=== PATIENT | female | born 1950 | race Caucasian/White ===

== ENCOUNTER → 2019-08-18 13:39 | Outpatient (CLI) | payer OTHER, SELFPAY | PROVIDERS: Visit Provider Family Medicine | DX: E11.621 Type 2 diabetes mellitus with foot ulcer (principal); L97.511 Non-pressure chronic ulcer of other part of right foot limited to breakdown of skin; R60.0 Localized edema; I73.9 Peripheral vascular disease, unspecified | CPT/HCPCS: 97597; 99203; 99213 ==

== ENCOUNTER → 2019-08-21 13:11 | Outpatient (CLI) | payer OTHER, SELFPAY ==
--- NOTE | 2019-08-21 | DI.MRI.S_ITS ---
PROCEDURE: MR FOOT RT WO CON INDICATIONS: Cellulitis of right toe TECHNIQUE: Noncontrast sagittal T1 spin echo and T2 fast spin echo with fat saturation, long-axis T1 spin echo and T2 fast spin echo with fat saturation, short-axis T1 spin echo and T2 fast spin echo with fat saturation through the forefoot. COMPARISON: None. FINDINGS: Image quality: Excellent. Bones and joints: No bone marrow contusions or metatarsal stress fractures. The sesamoid bones appear in expected positions, without internal edema. Diffuse severe midfoot joint degeneration. Associated sclerosis and spurring. Marrow fat signal loss seen in the distal phalanx of the fifth toe is noted although there is relative paucity of overlying soft tissue changes nonetheless this raises the possibility of osteomyelitis. Similar signal changes present in the distal phalanx of the third toe Elsewhere, marrow fat signal grossly preserved Soft tissues: Dorsal subcutaneous soft tissue edema. Diffuse muscle atrophy noted. Visualized flexor and extensor tendons appear intact, without tenosynovitis. The distal insertions of the peroneus brevis and longus tendons appear intact. The principal Lisfranc ligament appears intact. Fluid collections between the first-second, second-third and third-fourth metatarsal heads in keeping with intermetatarsal bursitis Sagittal images demonstrate no evidence for plantar plate tears. IMPRESSION: Findings suspicious for distal fifth and possibly third toe osteomyelitis as above, although suboptimal evaluation in the absence of IV contrast. Please correlate clinically and if necessary continued surveillance with short interval serial radiographic surveillance, or repeat contrast-enhanced MRI in 6 weeks after treatment. Dorsal subcutaneous edema Prominent mid foot degeneration raising possibility of neuropathic arthropathy. Please correlate clinically. Diffuse intermetatarsal bursitis, most prominently between the first-second metatarsal heads. Dictated by: Benji Graham M.D. on 08/21/2019 at 14:56 Approved by: Benji Graham M.D. on 08/21/2019 at 15:09
== END ==
PROVIDERS: PCP Family Medicine; Visit Provider Podiatrist
DX: E11.621 Type 2 diabetes mellitus with foot ulcer (principal); E11.42 Type 2 diabetes mellitus with diabetic polyneuropathy; L97.519 Non-pressure chronic ulcer of other part of right foot with unspecified severity; L03.031 Cellulitis of right toe; I73.9 Peripheral vascular disease, unspecified; M19.071 Primary osteoarthritis, right ankle and foot; M71.571 Other bursitis, not elsewhere classified, right ankle and foot; R60.0 Localized edema
CPT/HCPCS: 73718

== ENCOUNTER → 2020-03-09 14:58 | Outpatient (CLI) | payer OTHER, SELFPAY | PROVIDERS: PCP Family Medicine; Referring Provider Podiatrist; Visit Provider Family Medicine | DX: E11.621 Type 2 diabetes mellitus with foot ulcer (principal); L97.514 Non-pressure chronic ulcer of other part of right foot with necrosis of bone; M86.171 Other acute osteomyelitis, right ankle and foot; E11.40 Type 2 diabetes mellitus with diabetic neuropathy, unspecified | CPT/HCPCS: 11044; 36415; 80053; 84134; 85025; 85651; 86140; 87070; 87075; 87077; 87186; 87205; 99214 ==

== ENCOUNTER → 2020-03-09 15:23 | Outpatient (CLI) | payer OTHER, SELFPAY ==
[2020-03-09 16:26] LABS: Add Manual Diff / Slide Review NO; Basophils Absolute Auto 0 /uL (0-100); Basophils Percent Auto 0.4 % (0-2); Eosinophils Absolute Auto 100 /uL (0-450); Eosinophils Percent Auto 1.3 % (2-4); Hematocrit 39.8 % (36-46); Hemoglobin 13.7 g/dL (12.0-16.0); Lymphocytes Absolute Auto 1700 /uL (1100-4500); Lymphocytes Percent Auto 29.1 % (25-40); Mean Corpuscular HGB Conc 34.3 % (30-36); Mean Corpuscular Hemoglobin 30.7 PG (26-34); Mean Corpuscular Volume 89.5 fL (80-100); Monocytes Absolute Auto 400 /uL (0-900); Monocytes Percent Auto 7.2 % (3-14); Neutrophils Absolute Auto 3700 /uL (1500-7000); Platelet Count 229 X10^3/uL (150-400); Red Blood Cell Count 4.44 X10^6/uL (4.0-5.2); Red Cell Distribution Width 12.5 % (11.6-14.8); White Blood Cell Count 5.9 X10^3/uL (4.5-11.0)
[2020-03-09 16:43] LABS: Alanine Aminotransferase 23 IU/L (<35); Albumin 4.7 g/dL (3.5-5.0); Albumin Globulin Ratio 1.6 (1.0-2.8); Alkaline Phosphatase 52 U/L (38-126); Aspartate Aminotransferase 29 IU/L (14-36); BUN Creatinine Ratio 27.9 (6-22); Bilirubin Total 0.5 mg/dL (0.2-1.3); Blood Urea Nitrogen 24 mg/dL (7-17); Calcium 10.5 mg/dL (8.4-10.2); Carbon Dioxide 33 mmol/L (22-32); Chloride 95 mmol/L (98-107); Estimated Glomerular Filt Rate > 60.0 mL/min (>60); Globulin 2.9 g/dL (1.7-4.1); Glucose 126 mg/dL (80-110); HEMOLYSIS < 15 (0-50); Sodium 139 mmol/L (137-145); Total Protein 7.6 g/dL (6.3-8.2)
[2020-03-09 16:47] LABS: C-Reactive Protein Quant < 0.5 mg/dL (<1.0)
[2020-03-09 16:48] LABS: Prealbumin 30.5 mg/dL (17.6-36.0)
[2020-03-09 17:02] LABS: Erythrocyte Sedimentation Rate 16 MM/HR (0-20)
== END ==
PROVIDERS: PCP Family Medicine; Referring Provider Family Medicine; Visit Provider Family Medicine
DX: L08.9 Local infection of the skin and subcutaneous tissue, unspecified (principal)
CPT/HCPCS: 36415; 80053; 84134; 85025; 85651; 86140

== ENCOUNTER → 2020-03-16 16:14 | Outpatient (CLI) | payer OTHER, SELFPAY | PROVIDERS: PCP Family Medicine; Referring Provider Podiatrist; Visit Provider Family Medicine | DX: E11.621 Type 2 diabetes mellitus with foot ulcer (principal); L97.514 Non-pressure chronic ulcer of other part of right foot with necrosis of bone; M86.171 Other acute osteomyelitis, right ankle and foot | CPT/HCPCS: 11042; 99213 ==

== ENCOUNTER → 2020-03-23 16:08 | Outpatient (CLI) | payer OTHER, SELFPAY | PROVIDERS: PCP Family Medicine; Referring Provider Family Medicine; Visit Provider Family Medicine | DX: E11.621 Type 2 diabetes mellitus with foot ulcer (principal); L97.514 Non-pressure chronic ulcer of other part of right foot with necrosis of bone; M86.171 Other acute osteomyelitis, right ankle and foot; L08.9 Local infection of the skin and subcutaneous tissue, unspecified; R60.0 Localized edema; E11.40 Type 2 diabetes mellitus with diabetic neuropathy, unspecified | CPT/HCPCS: 36415; 73630; 80053; 85025; 85651; 86140; 87070; 87075; 87077; 87186; 87205; 99213; 99214 ==

== ENCOUNTER → 2020-03-23 16:17 | Outpatient (CLI) | payer OTHER, SELFPAY ==
--- NOTE | 2020-03-23 | DI.RAD.S_ITS ---
PROCEDURE: XR FOOT RT MIN 3V INDICATIONS: acute osteomyelitis/foot ulcer/Labs TECHNIQUE: 3 views of the foot were acquired. COMPARISON: None. FINDINGS: Bones: No fractures or dislocations. No suspicious bony lesions. Age-appropriate bony degenerative changes are seen. Toe alignment abnormalities are seen. A plantar calcaneal spur is seen. Soft tissues: Generalized distal soft tissue swelling is seen. IMPRESSION: No marian abnormality is seen by-to suggest osteomyelitis. If there is strong suspicion for developing osteomyelitis, please consider a dedicated MRI without and with contrast for further evaluation (assuming that there is no contraindication to MRI). Dictated by: Mervin Deluna M.D. on 03/23/2020 at 16:26 Approved by: Mervin Deluna M.D. on 03/23/2020 at 16:27
[2020-03-23 18:06] LABS: Add Manual Diff / Slide Review NO; Basophils Absolute Auto 0 /uL (0-100); Basophils Percent Auto 0.5 % (0-2); Eosinophils Absolute Auto 100 /uL (0-450); Eosinophils Percent Auto 1.4 % (2-4); Hematocrit 38.1 % (36-46); Lymphocytes Absolute Auto 2000 /uL (1100-4500); Lymphocytes Percent Auto 34.7 % (25-40); Mean Corpuscular Hemoglobin 30.8 PG (26-34); Mean Corpuscular Volume 90.3 fL (80-100); Monocytes Absolute Auto 400 /uL (0-900); Monocytes Percent Auto 7.3 % (3-14); Neutrophils Absolute Auto 3300 /uL (1500-7000); Neutrophils Percent Auto 56.1 % (50-75); Platelet Count 205 X10^3/uL (150-400); Red Blood Cell Count 4.22 X10^6/uL (4.0-5.2); Red Cell Distribution Width 12.4 % (11.6-14.8); White Blood Cell Count 5.9 X10^3/uL (4.5-11.0)
[2020-03-23 18:19] LABS: Alanine Aminotransferase 16 IU/L (<35); Albumin 4.4 g/dL (3.5-5.0); Albumin Globulin Ratio 1.5 (1.0-2.8); Alkaline Phosphatase 55 U/L (38-126); Aspartate Aminotransferase 21 IU/L (14-36); Bilirubin Total 0.4 mg/dL (0.2-1.3); Blood Urea Nitrogen 21 mg/dL (7-17); C-Reactive Protein Quant 1.3 mg/dL (<1.0); Calcium 9.7 mg/dL (8.4-10.2); Carbon Dioxide 33 mmol/L (22-32); Chloride 96 mmol/L (98-107); Estimated Glomerular Filt Rate > 60.0 mL/min (>60); Globulin 2.9 g/dL (1.7-4.1); Glucose 153 mg/dL (80-110); HEMOLYSIS < 15 (0-50); Potassium 3.7 mmol/L (3.4-5.1); Sodium 139 mmol/L (137-145); Total Protein 7.3 g/dL (6.3-8.2)
[2020-03-23 18:32] LABS: Erythrocyte Sedimentation Rate 30 MM/HR (0-20)
== END ==
PROVIDERS: PCP Family Medicine; Referring Provider Family Medicine; Visit Provider Family Medicine
DX: E11.621 Type 2 diabetes mellitus with foot ulcer (principal); L97.514 Non-pressure chronic ulcer of other part of right foot with necrosis of bone; M86.171 Other acute osteomyelitis, right ankle and foot; L08.9 Local infection of the skin and subcutaneous tissue, unspecified
CPT/HCPCS: 36415; 73630; 80053; 85025; 85651; 86140

== ENCOUNTER → 2020-03-30 14:36 | Outpatient (CLI) | payer OTHER, SELFPAY | PROVIDERS: PCP Family Medicine; Referring Provider Family Medicine; Visit Provider Family Medicine | DX: E11.621 Type 2 diabetes mellitus with foot ulcer (principal); L97.516 Non-pressure chronic ulcer of other part of right foot with bone involvement without evidence of necrosis; M86.171 Other acute osteomyelitis, right ankle and foot; L03.115 Cellulitis of right lower limb; E11.40 Type 2 diabetes mellitus with diabetic neuropathy, unspecified; R60.0 Localized edema | CPT/HCPCS: 11042 ==

== ENCOUNTER → 2020-04-06 14:48 | Outpatient (CLI) | payer OTHER, SELFPAY ==
[2020-04-06 17:25] LABS: Add Manual Diff / Slide Review NO; Basophils Absolute Auto 0 /uL (0-100); Basophils Percent Auto 0.5 % (0-2); Eosinophils Absolute Auto 100 /uL (0-450); Eosinophils Percent Auto 1.5 % (2-4); Hematocrit 40.7 % (36-46); Hemoglobin 14.1 g/dL (12.0-16.0); Lymphocytes Absolute Auto 2200 /uL (1100-4500); Lymphocytes Percent Auto 33.4 % (25-40); Mean Corpuscular HGB Conc 34.5 % (30-36); Mean Corpuscular Volume 89.8 fL (80-100); Monocytes Absolute Auto 500 /uL (0-900); Monocytes Percent Auto 7.8 % (3-14); Neutrophils Absolute Auto 3700 /uL (1500-7000); Neutrophils Percent Auto 56.8 % (50-75); Platelet Count 231 X10^3/uL (150-400); Red Blood Cell Count 4.54 X10^6/uL (4.0-5.2); Red Cell Distribution Width 12.1 % (11.6-14.8); White Blood Cell Count 6.5 X10^3/uL (4.5-11.0)
[2020-04-06 17:47] LABS: Erythrocyte Sedimentation Rate 17 MM/HR (0-20)
[2020-04-06 17:53] LABS: Alanine Aminotransferase 19 IU/L (<35); Albumin 4.8 g/dL (3.5-5.0); Alkaline Phosphatase 57 U/L (38-126); Aspartate Aminotransferase 25 IU/L (14-36); BUN Creatinine Ratio 30.9 (6-22); Bilirubin Total 0.5 mg/dL (0.2-1.3); Blood Urea Nitrogen 29 mg/dL (7-17); C-Reactive Protein Quant < 0.5 mg/dL (<1.0); Calcium 10.5 mg/dL (8.4-10.2); Carbon Dioxide 33 mmol/L (22-32); Chloride 95 mmol/L (98-107); Estimated Glomerular Filt Rate 58.9 mL/min (>60); Globulin 2.4 g/dL (1.7-4.1); Glucose 129 mg/dL (80-110); HEMOLYSIS < 15 (0-50); Potassium 3.9 mmol/L (3.4-5.1); Sodium 138 mmol/L (137-145); Total Protein 7.2 g/dL (6.3-8.2)
[2020-04-06 17:58] LABS: Prealbumin 31.9 mg/dL (17.6-36.0)
== END ==
PROVIDERS: PCP Family Medicine; Referring Provider Family Medicine; Visit Provider Family Medicine
DX: E11.621 Type 2 diabetes mellitus with foot ulcer (principal); M86.171 Other acute osteomyelitis, right ankle and foot; L97.516 Non-pressure chronic ulcer of other part of right foot with bone involvement without evidence of necrosis; R60.0 Localized edema
CPT/HCPCS: 11042; 36415; 80053; 84134; 85025; 85651; 86140; 99213

== ENCOUNTER → 2020-04-22 08:38 | Outpatient (CLI) | payer OTHER, SELFPAY | PROVIDERS: PCP Family Medicine; Referring Provider Podiatrist; Visit Provider Podiatrist | DX: Z01.818 Encounter for other preprocedural examination (principal); R73.9 Hyperglycemia, unspecified | CPT/HCPCS: 36415; 83036; 93005 ==

== ENCOUNTER → 2020-10-26 09:31 | Outpatient (CLI) | payer OTHER, SELFPAY | PROVIDERS: Family Provider Family Medicine; PCP Family Medicine; Referring Provider Podiatrist; Visit Provider Family Medicine | DX: E11.621 Type 2 diabetes mellitus with foot ulcer (principal); L97.513 Non-pressure chronic ulcer of other part of right foot with necrosis of muscle; E11.40 Type 2 diabetes mellitus with diabetic neuropathy, unspecified | CPT/HCPCS: 11043; 99213; 99214 ==

== ENCOUNTER → 2020-11-02 15:33 | Outpatient (CLI) | payer OTHER, SELFPAY | PROVIDERS: Family Provider Family Medicine; PCP Family Medicine; Referring Provider Family Medicine; Visit Provider Family Medicine | DX: E11.621 Type 2 diabetes mellitus with foot ulcer (principal); L97.513 Non-pressure chronic ulcer of other part of right foot with necrosis of muscle; L08.9 Local infection of the skin and subcutaneous tissue, unspecified; E11.40 Type 2 diabetes mellitus with diabetic neuropathy, unspecified; M20.41 Other hammer toe(s) (acquired), right foot | CPT/HCPCS: 73630; 87070; 87075; 87077; 87186; 87205; 99213; 99215 ==

== ENCOUNTER → 2020-11-02 16:17 | Outpatient (CLI) | payer OTHER, SELFPAY ==
--- NOTE | 2020-11-02 | DI.RAD.S_ITS ---
PROCEDURE: XR FOOT RT MIN 3V INDICATIONS: EVALUATE FOR OSTEOMYELITIS ULCER TECHNIQUE: 3 views of the foot were acquired. COMPARISON: [facility], CR, XR FOOT RT MIN 3V, 03/23/2020, 17:04. FINDINGS: Bones: There has been significant change from the comparison right foot plain films 03/23/20. The 2nd digit has been amputated from the 2nd metatarsal head distally. There is stable foreshortening of the 5th digit from the base of the middle phalanx distally as was previously the case. Over the 1st, 3rd and 4th digits no definite osteomyelitis is seen. At the 2nd metatarsal head there is relative lucency along the medial border of the metatarsal head to the degree that early osteomyelitis could be present. There is also relative lucency at the medullary space of the metatarsal head when compared to the prior study from March of last year. No fractures or dislocations. No suspicious bony lesions. Soft tissues: No tibiotalar joint effusion. Achilles tendon appears normal. IMPRESSION: Interval amputation of the 2nd digit from the metatarsal head distally. Relative lucency within the medullary space of the 2nd metatarsal head and along the medial border of the metatarsal head, to the degree that early osteomyelitis conceivably could be present. Continued attention to this area is recommended. Dictated by: Chris Crawford M.D. on 11/03/2020 at 9:32 Approved by: Chris Crawford M.D. on 11/03/2020 at 9:34
== END ==
PROVIDERS: Family Provider Family Medicine; PCP Family Medicine; Referring Provider Family Medicine; Visit Provider Family Medicine
DX: E11.40 Type 2 diabetes mellitus with diabetic neuropathy, unspecified (principal); L97.513 Non-pressure chronic ulcer of other part of right foot with necrosis of muscle; Z89.421 Acquired absence of other right toe(s)
CPT/HCPCS: 73630

== ENCOUNTER → 2020-11-08 10:35 | Outpatient (CLI) | payer OTHER, SELFPAY | PROVIDERS: Family Provider Family Medicine; PCP Family Medicine; Referring Provider Family Medicine; Visit Provider Family Medicine | DX: E11.621 Type 2 diabetes mellitus with foot ulcer (principal); L97.515 Non-pressure chronic ulcer of other part of right foot with muscle involvement without evidence of necrosis; B95.7 Other staphylococcus as the cause of diseases classified elsewhere; E11.40 Type 2 diabetes mellitus with diabetic neuropathy, unspecified | CPT/HCPCS: 99212; 99214 ==

== ENCOUNTER → 2020-11-15 15:11 | Outpatient (CLI) | payer OTHER, SELFPAY | PROVIDERS: Family Provider Family Medicine; PCP Family Medicine; Referring Provider Family Medicine; Visit Provider Family Medicine | DX: E11.621 Type 2 diabetes mellitus with foot ulcer (principal); L97.516 Non-pressure chronic ulcer of other part of right foot with bone involvement without evidence of necrosis; E11.40 Type 2 diabetes mellitus with diabetic neuropathy, unspecified; M20.41 Other hammer toe(s) (acquired), right foot | CPT/HCPCS: 99213 ==

== ENCOUNTER → 2020-11-22 15:41 | Outpatient (CLI) | payer OTHER, SELFPAY | PROVIDERS: Family Provider Family Medicine; PCP Family Medicine; Referring Provider Family Medicine; Visit Provider Family Medicine | DX: E11.621 Type 2 diabetes mellitus with foot ulcer (principal); L97.514 Non-pressure chronic ulcer of other part of right foot with necrosis of bone; E11.40 Type 2 diabetes mellitus with diabetic neuropathy, unspecified; M20.41 Other hammer toe(s) (acquired), right foot | CPT/HCPCS: 99212; 99214 ==

== ENCOUNTER → 2020-11-29 15:15 | Outpatient (CLI) | payer OTHER, SELFPAY | PROVIDERS: Family Provider Family Medicine; PCP Family Medicine; Referring Provider Family Medicine; Visit Provider Family Medicine | DX: E11.621 Type 2 diabetes mellitus with foot ulcer (principal); L97.514 Non-pressure chronic ulcer of other part of right foot with necrosis of bone; E11.40 Type 2 diabetes mellitus with diabetic neuropathy, unspecified; L08.9 Local infection of the skin and subcutaneous tissue, unspecified; M20.41 Other hammer toe(s) (acquired), right foot; Z79.2 Long term (current) use of antibiotics | CPT/HCPCS: 99212; 99215 ==

== ENCOUNTER → 2020-12-01 13:50 | Outpatient (CLI) | payer OTHER, SELFPAY ==
[2020-12-01 14:17] LABS: Add Manual Diff / Slide Review NO; Basophils Absolute Auto 0 /uL (0-100); Basophils Percent Auto 0.5 % (0-2); Eosinophils Absolute Auto 100 /uL (0-450); Eosinophils Percent Auto 0.9 % (2-4); Hematocrit 38.8 % (36-46); Hemoglobin 12.8 g/dL (12.0-16.0); Lymphocytes Absolute Auto 2100 /uL (1100-4500); Mean Corpuscular HGB Conc 32.9 % (30-36); Mean Corpuscular Hemoglobin 29.7 PG (26-34); Mean Corpuscular Volume 90.3 fL (80-100); Monocytes Absolute Auto 600 /uL (0-900); Monocytes Percent Auto 9.1 % (3-14); Neutrophils Absolute Auto 3400 /uL (1500-7000); Neutrophils Percent Auto 55.5 % (50-75); Platelet Count 256 X10^3/uL (150-400); Red Blood Cell Count 4.29 X10^6/uL (4.0-5.2); Red Cell Distribution Width 12.7 % (11.6-14.8); White Blood Cell Count 6.2 X10^3/uL (4.5-11.0)
[2020-12-01 14:19] LABS: Hemoglobin A1C% w Est Avg Glu 7.7 % (4.0-6.0)
[2020-12-01 14:42] LABS: Erythrocyte Sedimentation Rate 25 MM/HR (0-20)
[2020-12-01 14:46] LABS: Alanine Aminotransferase 19 IU/L (<35); Albumin 4.2 g/dL (3.5-5.0); Albumin Globulin Ratio 1.6 (1.0-2.8); Alkaline Phosphatase 60 U/L (38-126); Aspartate Aminotransferase 22 IU/L (14-36); Bilirubin Total 0.2 mg/dL (0.2-1.3); Blood Urea Nitrogen 36 mg/dL (7-17); C-Reactive Protein Quant 0.6 mg/dL (<1.0); Calcium 9.7 mg/dL (8.4-10.2); Carbon Dioxide 33 mmol/L (22-32); Chloride 95 mmol/L (98-107); Estimated Glomerular Filt Rate 49.6 mL/min (>60); Globulin 2.6 g/dL (1.7-4.1); Glucose 115 mg/dL (80-110); HEMOLYSIS < 15 (0-50); Potassium 3.7 mmol/L (3.4-5.1); Sodium 136 mmol/L (137-145); Total Protein 6.8 g/dL (6.3-8.2)
== END ==
PROVIDERS: Family Provider Family Medicine; PCP Family Medicine; Referring Provider Family Medicine; Visit Provider Family Medicine
DX: L97.514 Non-pressure chronic ulcer of other part of right foot with necrosis of bone (principal); E11.40 Type 2 diabetes mellitus with diabetic neuropathy, unspecified
CPT/HCPCS: 36415; 80053; 83036; 85025; 85651; 86140

== ENCOUNTER → 2020-12-09 12:59 | Outpatient (CLI) | payer OTHER, SELFPAY | PROVIDERS: Family Provider Family Medicine; PCP Family Medicine; Referring Provider Family Medicine; Visit Provider Family Medicine | DX: E11.621 Type 2 diabetes mellitus with foot ulcer (principal); L97.514 Non-pressure chronic ulcer of other part of right foot with necrosis of bone; L08.9 Local infection of the skin and subcutaneous tissue, unspecified; M20.41 Other hammer toe(s) (acquired), right foot; E11.40 Type 2 diabetes mellitus with diabetic neuropathy, unspecified; Z79.2 Long term (current) use of antibiotics | CPT/HCPCS: 87070; 87075; 87077; 87205; 99213; 99215 ==

== ENCOUNTER → 2020-12-16 13:44 | Outpatient (CLI) | payer OTHER, SELFPAY ==
--- NOTE | 2020-12-16 13:46 | DI.MRI.S_ITS ---
PROCEDURE: MR FOOT RT WO/W CON INDICATIONS: Non-pressure chronic ulcer of other part of right TECHNIQUE: Noncontrast sagittal T1 spin echo and T2 fast spin echo with fat saturation, long-axis T1 spin echo and T2 fast spin echo with fat saturation; short-axis T1 spin echo, proton density fast spin echo, and T2 fast spin echo with fat saturation through the forefoot. Post-contrast short axis, long axis, and sagittal T1 spin echo with fat saturation through the forefoot. COMPARISON: [facility], MR, MR FOOT RT WO CON, 08/21/2019, 13:49. [facility], CR, XR FOOT RT MIN 3V, 11/02/2020, 16:39. FINDINGS: Image quality: Excellent. Bones and joints: Postsurgical changes are seen from amputation of the 2nd ray at the metatarsophalangeal joint. No abnormal signal intensity is seen in the 2nd metatarsal. There is edema in the 4th proximal phalangeal shaft with decreased signal intensity on T1-weighted images that is suspicious for osteomyelitis. The 4th middle and distal phalanges in 4th metatarsal are normal in signal intensity.. Scattered degenerative changes are seen in the interphalangeal joints. Mild degenerative changes are seen at the 1st metatarsophalangeal joint. There is lateral angulation at the 1st interphalangeal joint that is likely chronic. Severe degenerative changes are seen throughout the tarsometatarsal joints that most likely represent neuropathic arthropathy. Pes planus alignment is seen. Soft tissues: Skin irregularity is seen in the interspace between the 4th and 5th digits. Soft tissue edema is seen in the 4th toe and within the foot surrounding the 4th metatarsal. There is subcutaneous soft tissue edema at the dorsum of the midfoot. There is grade 3-4 fatty infiltration of the intrinsic foot musculature that is compatible with chronic denervation changes. No peripherally enhancing fluid collection is seen to suggest abscess formation. Visualized flexor and extensor tendons appear intact, without tenosynovitis. The distal insertions of the peroneus brevis and longus tendons appear intact. The principal Lisfranc ligament is not well visualized. IMPRESSION: 1. Skin irregularity in the interspace between the 4th and 5th digit is compatible with a soft tissue ulcer. There is edema and enhancement within the 4th proximal phalanx that is suspicious for osteomyelitis. Surrounding soft tissue edema is seen within the 4th toe extending into the midfoot. 2. Postsurgical changes from amputation of the 2nd ray at the metatarsophalangeal joint. 3. Degenerative changes at the tarsometatarsal joint are suspicious for early neuropathic arthropathy. 4. Fatty infiltration of the intrinsic foot musculature most likely represents chronic denervation changes. Dictated by: Steffen Adkins M.D. on 12/16/2020 at 15:46 Approved by: Steffen Adkins M.D. on 12/16/2020 at 16:04
== END ==
PROVIDERS: Family Provider Family Medicine; PCP Family Medicine; Referring Provider Family Medicine; Visit Provider Family Medicine
DX: L97.519 Non-pressure chronic ulcer of other part of right foot with unspecified severity (principal); R60.0 Localized edema; L08.9 Local infection of the skin and subcutaneous tissue, unspecified; Z89.421 Acquired absence of other right toe(s)
CPT/HCPCS: 73720; 87070; 87075; 87077; 87147; 87205

== ENCOUNTER → 2020-12-16 15:50 | Outpatient (CLI) | payer OTHER, SELFPAY | PROVIDERS: Family Provider Family Medicine; PCP Family Medicine; Referring Provider Family Medicine; Visit Provider Family Medicine | DX: E11.621 Type 2 diabetes mellitus with foot ulcer (principal); L97.514 Non-pressure chronic ulcer of other part of right foot with necrosis of bone; L08.9 Local infection of the skin and subcutaneous tissue, unspecified; M20.41 Other hammer toe(s) (acquired), right foot; E11.40 Type 2 diabetes mellitus with diabetic neuropathy, unspecified; Z79.2 Long term (current) use of antibiotics | CPT/HCPCS: 99212; 99214 ==

== ENCOUNTER → 2020-12-16 16:22 | Outpatient (ROUT) | payer OTHER, SELFPAY | PROVIDERS: Family Provider Family Medicine; PCP Family Medicine; Visit Provider Family Medicine | DX: L08.9 Local infection of the skin and subcutaneous tissue, unspecified (principal) | CPT/HCPCS: 87070; 87075; 87205 ==

== ENCOUNTER → 2021-01-05 11:07 | Outpatient (CLI) | payer OTHER, SELFPAY ==
[2021-01-05 13:26] LABS: COVID19 -Nasal RAPID Negative (Negative)
== END ==
PROVIDERS: Family Provider Family Medicine; PCP Family Medicine; Visit Provider Physician Assistant
DX: Z20.822 Contact with and (suspected) exposure to COVID-19 (principal); Z01.812 Encounter for preprocedural laboratory examination
CPT/HCPCS: 87635

== ENCOUNTER 2021-01-08 12:30 | Observation (INO) | payer OTHER, SELFPAY ==
[2021-01-07] VITALS (13 sets, daily range): BP systolic 108–136; BP diastolic 41–81; PULSE 69–89; RESP 10–18; TEMP 35.6–36.9; O2SAT 96–100; BMI 24.4
--- NOTE | 2021-01-07 | PATH_ITS ---
[facility] Accession Number: [id number] . 01 Material submitted: . toe - RIGHT FOURTH TOE . 01 Clinical history: . RULE OUT OSTEOMYELITIS . 01 Diagnosis: Right Fourth Toe, Amputation: Cutaneous ulceration with underlying dense mixed neutrophilic and chronic inflammation with necrosis. Trabecular bone with evidence of remodeling, marrow fibrosis, and mixed chronic and focal neutrophilic inflammation, suggestive of acute on chronic osteomyelitis. Resection margins appear viable with inflammatory changes present at the en face bone margin. No evidence of malgnancy identified in sections examined. . Note: Clinical and radiographic correlation is recommended. MRV 01/14/2021 1034 Local . 01 Electronically signed: . Deangelo Freitas MD, Dermatopathologist NPI- [id number] . 01 Gross description: . The specimen is received in formalin, labeled right fourth toe and consists of a 5.0 x 2.5 x 2.0 cm disarticulated toe with a hanson keratotic unguis. The hanson wrinkled skin displays a 0.8 x 0.6 cm hanson lesion located 0.5 cm from the nearest skin and soft tissue margin. [employer] sections are submitted. . A1: skin lesion in relation to skin and soft tissue margins (blue). A2: bone margin, en face (following decalcification. A3: bone underlying skin lesion, following decalcification. ([id number]) /MRV 01/14/2021 1013 Local . 01 Pathologist provided ICD-10: M86.10 . 01 CPT . 147947, [id number] Performed at: [address], [place], [place] [id number] MD Neto Hoyos MD Phone: [phone]
[2021-01-07] MEDS: LACTATED RINGERS 1,000 ML 100 ML IV ×2 (09:13→16:25)
--- NOTE | 2021-01-07 09:15 | PM.PREOP ---
Pre-operative Note COVID-19 COVID-19 status: Negative Result date/Date tested (Pos, Neg/Pending): 01/05/21 Interval Note History & Physical reviewed/Exam performed by Physician: Yes Changes to H&P: No
--- NOTE | 2021-01-07 09:34 | P.OP_ITS ---
Operative Date/Time/Diagnoses Date of procedure: 01/07/21 Time of procedure: 09:34 Pre-op diagnosis: Right foot ulcer, suspect osteomyelitis fourth toe Post-op diagnosis: same Procedure & Clinicians Procedure: Right transmetatarsal amputation Same procedure as scheduled: Yes Indications: Ongoing wound right fourth toe, suspicious for osteomyelitis. Conservative measures failed to fully heal and she wished to have surgical intervention at this time. We have discussed risks, benefits, alternatives, potential complications. Consent reviewed. Surgeon: Pamela Quiros Click Yes if Unassisted: Yes Anesthesia Type: Spinal Operative Notes Closure Type: primary Specimen(s): other (1) Culture swab of deep soft tissue of fourth metatarsal area and 2) MT4 shaft edge and 3)fourth toe sent to pathology for identification) Applied: drain(s) (TLS lateral dorsal foot) Estimated Blood Loss (mL): 30 Blood products transfused: none Tourniquet time (min): 46 Procedure in detail: The patient was brought to the operating room and placed on the operating table. After administration of spinal anesthesia, she was placed in the supine position. The foot and ankle were prepared and local anesthesia was delivered to the foot. The tourniquet was placed about the left thigh. Well padded appropriately aligned. The foot and ankle were prepped and draped in the usual aseptic manner. The tourniquet was inflated. After check of anesthesia a full-thickness incision was made along the plantar sulcus of the toes, and just proximal to the sulcus along the dorsum of the foot. No purulence was noted but some friable tissue was present in the fourth toe wound area. No tunnelling or abscesses noted within the tissue of the fourth interspace. The head of the fourth metatarsal was softer at the cortical and behind the subchondral bone medial and lateral. Each of the toes were carefully disarticulated from the metatarsal heads and removed from the field. Deep tissue swab for culture was performed in the fourth interspace. Fourth toe was sent to pathology. The tissue was removed from the metatarsal heads and necks and the saw was used to cut the metatarsal necks of each bone, in a slightly angulated manner, and keeping with the general notion of the parabola. The edges of each of these bones were revised to be softened on their edges and smoothed with a rasp. The leading edge of the remaining fourth metatarsal shaft was sent for bone culture. Any further tendon in the field or necrotic tissue was removed. Edges of the skin were matched and revised as needed. The area was irrigated with copious amounts of normal sterile saline. TQ was deflated, and prompt hyperemic response was seen to the tissues. Vessels were cauterized and ligated as necessary. 3-0 and 4-0 Vicryl were used subcutaneously for closure and 3-0, 4-0 nylon for the skin. Prior to closure a TLS drain was placed in the wound and it was confirmed to have good suction once the vaccutainer was placed. The area was dressed with a sterile lightly compressive dressing and posterior s plint well-padded. She was transferred to PACU with vital signs stable and vascular status intact to the foot. Complications: none Post-operative Condition: stable Disposition: Acute Care Plan for aftercare: Following a period of postoperative monitoring she is transferred to the surgical floor for overnight observation. Upon evaluation in the morning, and possible drain removal, barring any other concerns, she will be transferred home in c/o her daughter. She will be mostly non-weightbearing and can do flat touchdown of the foot a little if need to for transfer or steadiness with a walker. She has a posterior splint on and will be evaluated and changed at her visit next week in clinic. DVT prevention techniques to be continued. She may finish the final couple of doxycycline tablets she has when returning to home as directed on medication instructions.
[2021-01-07] MEDS: CEFAZOLIN 2 GM/100 ML FROZ.PIGGY IV (09:51)
[2021-01-07 10:14] LABS: BUN Creatinine Ratio 29.5 (6-22); Blood Urea Nitrogen 28 mg/dL (7-17); Calcium 9.7 mg/dL (8.4-10.2); Carbon Dioxide 30 mmol/L (22-32); Chloride 98 mmol/L (98-107); Estimated Glomerular Filt Rate 58.2 mL/min (>60); Glucose 124 mg/dL (80-110); HEMOLYSIS < 15 (0-50); Potassium 3.6 mmol/L (3.4-5.1); Sodium 137 mmol/L (137-145)
[2021-01-07] MEDS: LIDOCAINE 2% INJ SDV 5 ML INJ (10:25)
--- NOTE | 2021-01-07 10:37 | SUR.OPER ---
Supine on padded OR bed, head on pillow, arms secured on padded arm boards at <90 degrees abduction, legs uncrossed, safety belt at thigh, tape over blanket over lower left leg, gel bump under right hip, right leg draped free.
[2021-01-07] MEDS: BUPIVACAINE 0.5% (PF) VIAL 30 ML INJ (11:03)
[2021-01-07] MEDS: ONDANSETRON 4 MG/2 ML INJ IV (15:18)
--- NOTE | 2021-01-07 15:37 | PC.NURSE ---
Assumed care of patient at 1330, patient a/o x 4. Denies numbness in the RLE, Dressing intact and LUCERO wrap to knee intact. Splint intact. Drain put out 15cc sanguinous drainage, changed at 1500. Patient c/o nausea after oral intact. Zofran PRN administered IV. LR running at 100cc. Patient denies pain. Patient incontinent of stool. Sample sent. IS bedside, lungs CTA, 98% on room air. VS WNL. Patient instructed to call before getting OOB. Patient verbalized understanding. Call light in reach.
[2021-01-07 16:46] LABS: Clostridium Difficile Tox PCR Negative for C. diff
[2021-01-07] MEDS: LOVASTATIN 20 MG TABLET 10 MG PO (20:55)
[2021-01-07] MEDS: GABAPENTIN 600 MG TABLET PO (20:56)
[2021-01-07] MEDS: INSULIN ASPART 100 UNIT/ML INSULN PEN SUBCUT (20:56)
[2021-01-07] MEDS: METFORMIN HCL 500 MG TABLET 1000 MG PO (20:56)
[2021-01-07] MEDS: BENAZEPRIL 20 MG TABLET 40 MG PO (20:56)
[2021-01-08] VITALS (9 sets, daily range): BP systolic 108–142; BP diastolic 55–68; PULSE 58–90; RESP 14–18; TEMP 36.5–37.2; O2SAT 93–97
[2021-01-08] MEDS: LACTATED RINGERS 1,000 ML 100 ML IV (01:26)
[2021-01-08] MEDS: HYDROCODONE/ACET 5/325 TABLET 1 TAB PO ×2 (04:54→10:18)
[2021-01-08] MEDS: INSULIN ASPART 100 UNIT/ML INSULN PEN SUBCUT ×2 (08:04→16:56)
[2021-01-08] MEDS: METFORMIN HCL 500 MG TABLET 1000 MG PO ×2 (08:05→20:52)
[2021-01-08] MEDS: hydroCHLOROthiazide 25 MG TABLET 50 MG PO (08:05)
[2021-01-08] MEDS: LACTOBACILLUS ACIDOPHILUS TABLET 1 EACH PO (08:05)
--- NOTE | 2021-01-08 09:18 | P.PN_ITS ---
Subjective Subjective Date Patient Seen: 01/08/21 Time Patient Seen: 09:18 Interval history: 70 yo DM female seen s/p 1 day right transmetatarsal amputation performed yesterday morning. Denies f/c, but has still had a little nausea which has eased off since directly being admitted to the floor following the procedure yesterday. She feels this was brought on by the soup provided for her at lunch, and this morning, she experienced it again with the smell of the cream of wheat at breakfast. She had one initial experience upon admission yesterday of diarrhea, but has not had this since, and this morning was able to get to the commode without problems. She experienced some possible pain overnight in the surgical foot, but when she dangled it over the bed today it felt more like some pressure and less pain. She has incentive spirometry to use bedside. Exam Vital Signs (past 8 hours): - 01/08/21 04:00 01/08/21 08:00 Temperature 98.8 F 98.5 F Pulse Rate 89 82 Respiratory Rate 18 16 Blood Pressure 138/68 124/61 Pulse Oximetry 93 94 Oxygen Delivery Method Room Air Oxygen Flow Rate 0 Const Orientation: alert, awake and oriented x3 Resp Effort & Inspection: normal respiratory effort Cardio Pulses: popliteal pulses present Extrem Other: Right foot/ankle splint in place with no external strikethrough. Drain in place and vaccutainer about 2cc very light blood. Able to move knee in flexion/extension. Leg well-perfused. Anterior dressing of splint taken down and access to drain tube is made along the conti. Drain tube gently able to be removed in total, confirming the end was removed. The tip of the gauze of the dressing at the amputation site appeared to have some dried blood strikethrough under the LUCERO wrap. No active wet bleeding seen here, and the full dressing is not removed. Objective Labs Result Diagrams: 01/07/21 09:50 01/07/21 09:50 Labs: Laboratory Results - last 24 hr 01/07/21 01/07/21 09:50 15:05 Sodium 137 Potassium 3.6 Chloride 98 Carbon Dioxide 30 BUN 28 H Creatinine 0.95 Estimated GFR 58.2 L BUN/Creatinine Ratio 29.5 H Glucose 124 H Calcium 9.7 C. difficile Tox (PCR) Negative for c. diff [facility] Medical History Amputated toe of right foot Cataract (lens) fragments in eye following cataract surgery, bilateral Diabetes mellitus Neuropathy Surgical History H/O: hysterectomy History of section History of surgery on right wrist Social History household members: children and none Smoking Status: Never smoker alcohol intake: never Assessment & Plan Post-op Assessment and plan (1) Diabetes mellitus: Assessment and Plan narrative: Her blood sugars have remained in a controlled range during her stay, and she is ok to resume her oral medication management for this as an outpatient. She sees her primary care physician for ongoing management of this. Postoperative Procedures: Procedures Operation Date: 01/07/21 09:45 Actual Procedures Side Surgeon p Transmetatarsal amputation Right Pamela Quiros DPM Postoperative day: 1 Postoperative status: doing well Postoperative status narrative: Progressing well following right transmetatarsal amputation. Still experiencing some mild nausea but appears to be controlled at time of assessment, and pain also under control. Postoperative plan: discharge Postoperative plan narrative: We reviewed in detail her plan for discharge and beyond. -Drain was removed today from the foot, and splint and dressing was reinforced, well-padded. Instructions given for care of this area to not get it wet, and ok to reinforce tip of dressing with gauze if necessary. -Will consider new posterior splint at first outpatient post op visit vs boot based on her preferred assistive device for ambulation -Appreciate consultation by physical therapy prior to d/c to home for WB status of right foot flat touchdown only for steadiness, balance, and transfers as she is currently trialing a walker. Otherwise, she is looking to secure a roll-about scooter which would allow her mostly NWB which is preferred initially while splint is in place and before she is ready for use of orthopedic boot. -Encouraged ROM and other DVT prevention techniques to the leg to continue upon D/C to home. Ok to start daily aspirin and will discuss this further at her appt on Sunday. -Reviewed also to continue use of incentive spirometry at home. -While we are pending cultures from the surgery, she is going to resume her oral dose of doxycycline she has at home as per instructions from Dr. Neely. -Healthy eating and drinking habits reviewed for when she returns home. -Her daughter will be able to care for her upon d/c to home. Spoke with Case Mgmt and reviewed details of likely d/c to home today. I am comfortable with d/c to home today following physical therapy eval and recommendation as well as verifying nausea/pain controlled. She had no further questions and already has her medications filled that she will need for her mgmt at home. Time Spent With Patient Time with patient: 25 - 35 minutes Quality MIPS - Admit Advanced Care Plan / Current Medications Measures: #47 ? Advanced Care Plan Clinician documentation instruction: document at admission. [] I confirmed that the patient's Advance Care Plan is present, code status is documented, or surrogate decision maker is listed in the patient?s medical record. [SATISFIES MIPS PERFORMANCE] If Yes, Stop Here [] The patient?s Advance Care plan is not present because: (select) [MIPS PERFORMANCE EXCEPTION/EXCLUSION] [] I confirmed today that the patient does not wish or was not able to name a surrogate decision maker or provide an Advance Care Plan. [] Hospice care is currently being provided or has been provided this calendar year [] I did NOT confirm today the presence of an Advance Care Plan or surrogate decision maker documented within the patient's medical record. [DOES NOT SATISFY MIPS PERFORMANCE] #130 - Documentation of Current Medications in the Medical Record Clinician documentation instruction: use macro the first time you see a patient. [] I have utilized all available immediate resources to obtain, update, or review the patient?s current medications. [SATISFIES MIPS PERFORMANCE] If Yes, Stop Here [] The patient is not eligible for medication reconciliation; the patient is in an emergent medical situation where delaying treatment would jeopardize the patient?s health. [MIPS PERFORMANCE EXCEPTION/EXCLUSION] [] I did NOT confirm, update or review the patient's current list of medications today. [DOES NOT SATISFY MIPS PERFORMANCE] MIPS - CL Central Venous Catheter Placement Measure: #76 ? Prevention of Central Venous Catheter (CVC) ? Related Bloodstream Infection Clinician documentation instruction: use macro every time you place a central line. [] All elements of Maximal Sterile Barrier Technique, including hand hygiene, skin prep, and sterile ultrasound technique (if used) were followed. [SATISFIES MIPS PERFORMANCE] If Yes, Stop Here [] If ?No?, the medical reason all elements were NOT used for medical reason [] (ex. emergent condition). [] Maximal Sterile Barrier Technique was not followed, no reason provided [DOES NOT SATISFY MIPS PERFORMANCE] MIPS - DC Heart Failure Measures: #5 - Heart Failure (HF): Angiotensin-Converting Enzyme (LUCERO) Inhibitor or Angiotensin Receptor Anusha (ARB) Therapy for Left Ventricular Systolic Dysfunction (LVSD) and #8 - Heart Failure (HF): Beta-Anusha Therapy for Left Ventricular Systolic Dysfunction (LVSD) Clinician documentation instruction: use macro at every CHF discharge. [] The patient has current or prior documentation of left ventricular ejection fraction (LVEF) less than 40%, or moderate or severely depressed left ventricular systolic function. Answer both: [SATISFIES MIPS PERFORMANCE] [] The patient was prescribed or already taking an Angiotensin-Converting Enzyme (LUCERO) Inhibitor, or Angiotensin Receptor Anusha (ARB). [] The patient was prescribed or already taking a beta-anusha. If Yes to Both, Stop Here [] Patient not prescribed/taking: [MIPS PERFORMANCE EXCEPTION/EXCLUSION] [] LUCERO or ARB for medical/patient/system reason(s) including [] (ex. allergy, intolerance, contraindication) [] Beta-anusha for medical/patient/system reason(s) including [] (ex. allergy, intolerance, contraindication) [] Patient not prescribed/taking: [DOES NOT SATISFY MIPS PERFORMANCE] [] LUCERO or ARB, no reason given [] Beta-anusha, no reason given
[2021-01-08] MEDS: ONDANSETRON 4 MG ODT SL (10:18)
--- NOTE | 2021-01-08 10:51 | PT.IIE ---
Current Diagnoses Type 2 diabetes mellitus with other diabetic neurological complication (01/07/21) Type 2 diabetes mellitus without complications (01/07/21) Non-pressure chronic ulcer of other part of right foot with fat layer exposed (01/07/21) Other hammer toe(s) (acquired), right foot (01/07/21) Surgery Performed Operation Date: 01/07/21 09:45 Actual Procedures p Transmetatarsal amputation(Right) - Pamela Quiros DPM Surgical History (Last Reviewed 01/08/21 @ 09:29 by Pamela Quiros DPM) H/O: hysterectomy History of section History of surgery on right wrist Medical History (Last Updated 01/08/21 @ 09:44 by Pamela Quiros DPM) Amputated toe of right foot Cataract (lens) fragments in eye following cataract surgery, bilateral Diabetes mellitus Neuropathy Physical Therapy Inpatient Evaluation/Re-Eval M1 PT/OT-IP Prior Functional Status Start: 01/08/21 12:01 Freq: NEEDED Status: Active Protocol: Document 01/08/21 10:51 AB (Rec: 01/08/21 12:17 AB [id number]) Medical Review Prior Functional Status Medical History Reviewed Yes Communication able to make needs known Mobility and Gait pt stated that she was independent with all mobilities and ambulation without AD Social History Household Members children,none Living Arrangements House Number of Floors (Floors) Two Floors Number of Stairs To Enter/Railing? pt stays on main level of the house has 2 platform steps to enter the house without rails Home Environment Standard Height Toilet,Walk in Shower Home Equipment Front Wheel Walker Additional Social History Comment pt stated that she will stay on main level of the house and sleep on her couch but upstairs, she has an adjustable bed pt has a hurrycane M2 PT-IP Current Condition Start: 01/08/21 12:01 Freq: NEEDED Status: Active Protocol: Document 01/08/21 10:51 AB (Rec: 01/08/21 12:17 AB [id number]) Physical Therapy Current Condition Current Condition Evaluation Date 01/08/21 Treatment Diagnosis s/p R transmetatarsal amputation; difficulty in walking Onset Date 01/07/21 Precautions Brace R LE posterior splint Weight Bearing Status Weight Bearing Status Non-Weight Bearing Allowed Weight Bearing Amount (enter % RLE NWB x 4 weeks but with or #) (%) walker use can do TDWB with foot flat and not heel only M3 PT-IP Subjective Start: 01/08/21 12:01 Freq: NEEDED Status: Active Protocol: Document 01/08/21 10:51 AB (Rec: 01/08/21 12:17 AB [id number]) Subjective Physical Therapy Visit Type Type Initial Evaluation Visit Start Time 10:51 Visit Stop Time 11:25 Total Visit Minutes 34 Number of WHEELCHAIR VAN OPERATOR FIRST RESPONDER Visits 0 Physical Therapy Visit Comments Patient Comments pt is agreeable to do PT Therapy Pain Assessment Pain Present Pain Present Denied Pain M4 PT-IP Mobility and Gait Start: 01/08/21 12:01 Freq: NEEDED Status: Active Protocol: Document 01/08/21 10:51 AB (Rec: 01/08/21 12:17 AB [id number]) PT-Bed Mobility Assessment Sit to Supine Sit to Supine Standby Assistance PT-Transfer Assessment Sit to and From Stand Sit to and from Stand Minimal Assistance,1 Person Assistance,Use of Upper Extremities Equipment Transfer Assistive Device Gait Belt,Front Wheeled Walker Orthotic/Prosthetic Devices or Brace: Yes Transfers Transfer Destination Bed,Bedside Commode Transfer Technique Stand Step Pivot Transfer Ability Level of Assist Minimal Assistance,1 Person Assistance,Use of Upper Extremities Comments Mobility Comments pt sitting on chair and agreeable to do PT. completed sit to stand min A and step transfer to bedside commode using FWW min A. pt completed sit to stand from bed side commode min A and ambulated to the bed using fWW min A ~ 5 ft . completed sit to supine SBA. positioned pt in bed. c /o nause with (+) emesis. pt stated that she had the same reaction when she had her other surgeries and had nausea for ~ 2 days. pt is concerned about going home today. informed nurese regarding pt's concerns. Nurse stated that she will call pt's daughter for caregiver training and set up for 130-200 pm. informed pt regarding equipement needs. pt stated that she is thinking about getting a knee scooter. informed pt regarding use of knee scooter and stated that she does not want to try it now that she sees it and it might be too much for her to use. informed pt to use FWW for transfer and to acquire a w/c for long distance mobility . pt agreed. also informed pt regarding caregiver training and stair climbing training and pt agreed. Gait Assessment Gait Gait Assistance Required: Minimum Assistance Distance (Feet) 5 Able to Maintain Weight Bearing Status Yes During Gait Assistive Devices Assistive Device Gait Belt,Front Wheeled Walker Orthotic/Prosthetic Devices or Brace: No Gait Deviations General Gait Pattern Decreased Stride Length, Decreased Feet Clearance Factors Limiting Gait Function Factors Limiting Gait Function Decreased Activity Tolerance, Decreased Strength,Poor Balance,Poor Safety Awareness PT-Balance Assessment Sitting Balance and Reactions Static Sitting Balance Ability Good Dynamic Sitting Balance Ability Good Standing Balance and Reactions Static Standing Balance Ability Fair Dynamic Standing Balance Ability Fair Device Used FWW M5 PT-IP Objective Assessments Start: 01/08/21 12:01 Freq: NEEDED Status: Active Protocol: Document 01/08/21 10:51 AB (Rec: 01/08/21 12:17 AB [id number]) Orientation Orientation/Cognition Level of Alertness Alert Orientation Name,Place,Situation Language Function Ability Hard of Hearing Safety Awareness Decreased Safety Awareness Gross Range of Motion Lower Extremity ROM Assessment Within Functional Limits Impairments R ankle NT: with posterior splint Strength Lower Extremity Strength Ankle NT: with posterior splint and weight bearing restriction Sensation Assessment Sensation Light Touch Impaired Proprioception (Position) Impaired Comments Sensation Comments has chronic bilateral LE neuropathy Muscle Tone Muscle Tone WNL Yes M6 PT-IP Treatment Start: 01/08/21 12:01 Freq: NEEDED Status: Active Protocol: Document 01/08/21 10:51 AB (Rec: 01/08/21 12:17 AB [id number]) Physical Therapy Treatment Education Education Provided Weight Bearing Status,Safety M7 PT-IP Assessment and Plan Start: 01/08/21 12:01 Freq: NEEDED Status: Active Protocol: Document 01/08/21 10:51 AB (Rec: 01/08/21 12:17 AB [id number]) PT Summary Assessment and Plan Potential Rehabilitation Potential Fair Status of Condition at Evaluation Evolving Summary Impairments Pain,ROM,Strength,Balance, Coordination,Sensation,Bed Mobility,Transfers,Gait, Activity Tolerance Assessment Summary pt requiring min A with transfers and ambulation and has decrease activity tolerance. informed pt regarding DME needs and understood. caregiver training set up for today at ~ 130 pm / 2pm. will continue to assess progress. Goals Bed Mobility Goal Independent Transfer Goal Independent,Front Wheeled Walker Gait Goal Independent,Front Wheel Walker Gait Distance 50 Other Goals up/down 2 platform steps using FWW min A Days to Meet Goals 5 Frequency of Treatment Frequency Of Treatment Twice a Day Treatment Plan Physical Therapy Treatment Plan Bed Mobility Training,Transfer Training,Gait Training, Therapeutic Exercise,Balance Retraining,Post Op Education, Discharge Planning,Hot or Cold Pack,Neuromuscular Re-ed, Coordination Retraining,Manual Therapy Other Recommendations and Next Treatment caregiver training; stair Focus training Precautions Other Precautions NWB on RLE; with walker use: TDWB foot flat and not on heel only Recommendations To Nursing Amount of Assist Needed 1 Person Assist Discharge Recommendations PT Discharge Recommendations Home with 14/05 Assist Available,Home Health Transportation Needs at Discharge Private Vehicle,Wheelchair/ Cabulance
[2021-01-08] MEDS: PROCHLORPERAZINE 5 MG TABLET PO ×2 (12:31→13:57)
[2021-01-08] MEDS: ASPIRIN 325 MG TABLET PO (12:35)
[2021-01-08] MEDS: ACETAMINOPHEN 325 MG TABLET PO (12:35)
--- NOTE | 2021-01-08 13:55 | PT.IPTN ---
Current Diagnoses Type 2 diabetes mellitus with other diabetic neurological complication (01/07/21) Type 2 diabetes mellitus without complications (01/07/21) Non-pressure chronic ulcer of other part of right foot with fat layer exposed (01/07/21) Other hammer toe(s) (acquired), right foot (01/07/21) Surgery Performed Operation Date: 01/07/21 09:45 Actual Procedures p Transmetatarsal amputation(Right) - Pamela Quiros DPM Physical Therapy Treatment Note M2 PT-IP Current Condition Start: 01/08/21 12:01 Freq: NEEDED Status: Active Protocol: Document 01/08/21 10:51 AB (Rec: 01/08/21 12:17 AB [id number]) Physical Therapy Current Condition Current Condition Evaluation Date 01/08/21 Treatment Diagnosis s/p R transmetatarsal amputation; difficulty in walking Onset Date 01/07/21 Precautions Brace R LE posterior splint Weight Bearing Status Weight Bearing Status Non-Weight Bearing Allowed Weight Bearing Amount (enter % RLE NWB x 4 weeks but with or #) (%) walker use can do TDWB with foot flat and not heel only M3 PT-IP Subjective Start: 01/08/21 12:01 Freq: NEEDED Status: Active Protocol: Document 01/08/21 13:55 AB (Rec: 01/08/21 14:53 AB [id number]) Subjective Physical Therapy Visit Type Type Treatment Note Visit Start Time 13:55 Visit Stop Time 14:33 Total Visit Minutes 38 Number of JOURNEYMAN MECHANIC Visits 0 Physical Therapy Visit Comments Patient Comments pt is agreeable to do PT; daughter in room for caregiver training; pt continues to c/o nausea M4 PT-IP Mobility and Gait Start: 01/08/21 12:01 Freq: NEEDED Status: Active Protocol: Document 01/08/21 13:55 AB (Rec: 01/08/21 14:53 AB [id number]) PT-Bed Mobility Assessment Supine to Sit Supine to Sit Standby Assistance,Bedrails Sit to Supine Sit to Supine Standby Assistance PT-Transfer Assessment Sit to and From Stand Sit to and from Stand Contact Guard Assistance, Minimal Assistance,1 Person Assistance,Use of Upper Extremities Equipment Transfer Assistive Device Gait Belt,Front Wheeled Walker Orthotic/Prosthetic Devices or Brace: No Transfers Transfer Destination Bed,Chair,Bedside Commode Transfer Technique ambulated using FWW Transfer Ability Level of Assist Contact Guard Assistance, Minimal Assistance,1 Person Assistance,Use of Upper Extremities Comments Mobility Comments caregiver training conducted. educated pt's daughter on how to use safety belt and how to assist pt. pt completed supine to sit SBA initially used bed rail but when asked not to use bed rail pt proceeded without use of bed rail. daughter was able to put safety belt on pt. pt requested to use the toilet. ambulated ~ 5 ft from bed to bedside commode using FWW CGA to min A with daughter assisting. pt was able to manage brief min A with daughter assisting pt. pt ambulated to chair using FWW min A. PT educated and demonstrated to pt on how to do up/down 1 step backwards using FWW for support while maintaining NWB on RLE. pt completed up/down step stool using FWW with daughter assisting min A and cues. pt ambulated back to bed using FWW min A. pt c/o increase nausea and feeling fatigued needing increase assistance towards end of tx session but pt's daughter was able to assist. pt completed sit to supine SBA. positioned pt in bed. call light and table placed within reach. pt required frequent rest breaks in between activities due to c /o nausea. informed pt and daughter to position chairs at home for pt to rest in between activities especially when getting into the house. informed pt and daughter regarding equipement needs: w/ c, shower chair, RTS with handles and bedside commode. daughter stated that she saw the DME list provided to pt this morning and will call and also stated that anneliese has the shower/RTS and can get one from there. Gait Assessment Gait Gait Assistance Required: Contact Guard Assist,Minimum Assistance Distance (Feet) 5 Able to Maintain Weight Bearing Status Yes During Gait Assistive Devices Assistive Device Gait Belt,Front Wheeled Walker Orthotic/Prosthetic Devices or Brace: Yes Gait Deviations General Gait Pattern Decreased Stride Length, Decreased Feet Clearance Factors Limiting Gait Function Factors Limiting Gait Function Decreased Activity Tolerance, Decreased Sensation,Decreased Strength,Pain,Poor Balance, Poor Safety Awareness Comments Gait Comments able to take steps during transfers Stair Climbing Assessment Evaluation Level of Assist On Stairs Minimal Assistance Devices Stair Climbing Assistive Devices Front Wheel Walker Technique/Endurance Stair Climbing Direction Ascend and Descend Stair Climbing Technique Step to Step Number of Steps Climbed 1 Stair Climbing Set # Repetitions (reps) 1 M5 PT-IP Objective Assessments Start: 01/08/21 12:01 Freq: NEEDED Status: Active Protocol: Document 01/08/21 10:51 AB (Rec: 01/08/21 12:17 AB [id number]) Orientation Orientation/Cognition Level of Alertness Alert Orientation Name,Place,Situation Language Function Ability Hard of Hearing Safety Awareness Decreased Safety Awareness Gross Range of Motion Lower Extremity ROM Assessment Within Functional Limits Impairments R ankle NT: with posterior splint Strength Lower Extremity Strength Ankle NT: with posterior splint and weight bearing restriction Sensation Assessment Sensation Light Touch Impaired Proprioception (Position) Impaired Comments Sensation Comments has chronic bilateral LE neuropathy Muscle Tone Muscle Tone WNL Yes M6 PT-IP Treatment Start: 01/08/21 12:01 Freq: NEEDED Status: Active Protocol: Document 01/08/21 13:55 AB (Rec: 01/08/21 14:53 AB [id number]) Physical Therapy Treatment Education Education Provided Weight Bearing Status,Safety M7 PT-IP Assessment and Plan Start: 01/08/21 12:01 Freq: NEEDED Status: Active Protocol: Document 01/08/21 13:55 AB (Rec: 01/08/21 14:53 AB [id number]) PT Summary Assessment and Plan Potential Rehabilitation Potential Good Summary Impairments Pain,ROM,Strength,Balance, Coordination,Sensation,Tone, Cognition,Bed Mobility, Transfers,Gait,Activity Tolerance Progress Towards Goals Slow Progress due to Activity Tolerance,Slow Progress - Other Assessment Summary caregiver training conducted and daughter was able to assist pt safely. pt has decrease activity tolerance with c/o nausea and tiredness. pt and daughter are aware of DME needs and daughter stated that she will get the equipement for pt. pt also concerned about going home today due to c/o nausea and unable to tolerate much activity needing to take frequent rest breaks. informed nurse that pt's concern. Goals Bed Mobility Goal Independent Transfer Goal Independent,Front Wheeled Walker Gait Goal Independent,Front Wheel Walker Gait Distance 50 Other Goals up/down 2 platform steps using FWW min A Days to Meet Goals 5 Frequency of Treatment Frequency Of Treatment Twice a Day Treatment Plan Physical Therapy Treatment Plan Bed Mobility Training,Transfer Training,Gait Training, Therapeutic Exercise,Balance Retraining,Post Op Education, Discharge Planning,Hot or Cold Pack,Neuromuscular Re-ed, Coordination Retraining,Manual Therapy Other Recommendations and Next Treatment caregiver training; stair Focus training Precautions Other Precautions NWB on RLE; with walker use: TDWB foot flat and not on heel only Recommendations To Nursing Amount of Assist Needed 1 Person Assist Discharge Recommendations PT Discharge Recommendations Home with 24/ Assist Available,Home Health Transportation Needs at Discharge Private Vehicle,Wheelchair/ Cabulance
--- NOTE | 2021-01-08 15:02 | CM.DANOTE ---
Patient is a 70 year old female who was admitted on 01/07/21 for Right foot Amputation. Pt has [facility] and [facility] A for insurance and her PCP is Dr. Zoran Welch. EMR was reviewed. Per Surgeon, pt with amputation as she had failed multiple attempts at managing her [facility]. Pt will likely be mostly non-weight baring for 4 weeks. Per PT, pt remains quite N/V with some bp issues and still need to complete CG training and stairs prior to d/c as pt has 2 steps to enter and currently recommending w/c that Dtr is working on securing. Pt has not been able to tolerate FWW or leg scooter. PT gave Dtr DME list to get the recommended DME for safe return home. And recommending HH. Pt quite n/v and requests SW to come back for bedside assessment tomorrow and no HH preference. SW made [facility] referral based on Vendor Calendar and pt lives on [facility] and efaxed new referral to review. F2F still needs MD signature if agreeable with home and HH plan at d/c. Plan: SW to follow closely in the morning after further PT stairs/CG training and confirmation of plan of home with [facility] and get F2F signed by MD. KARLENE Stearns Discharge Planning/Care Management CM Discharge Assessment Start: 01/08/21 14:57 Freq: Status: Active Protocol: Document 01/08/21 14:57 BF (Rec: 01/08/21 15:02 BF [id number]) Discharge Planning Assessment Assigned Director Of Recruitment And Admissions KARLENE Richardson DPOA/Assigned Designee Name Chadd Bowling Contact Information [phone] Advance Directives? No Advance Directives on File No History Provided By Patient,Medical Record Has Patient been admitted in last 30 No days? Prior Living Arrangements House Household Members children,none Type of transporation used prior to Drives own vehicle admit Independent with ADL's Yes Is patient alert and oriented? Yes Caregiver for Another No DME Already Rented / Owned FWW / Walker Patient/Family Preference Home with Home Health Barriers to Discharge No Discharge Plan Home with Home Health Transportation Arrangement Dtr available to provide transport home Referrals Initiated Home Health Medicare Choice List Provided Yes SNF/HH Preference [facility] based on vendor calendar Review Status In Process Please Provide Date Initial DC 01/08/21 Assessment Was Performed Next Review Type Continued Stay Review
[2021-01-08] MEDS: ENOXAPARIN 40 MG/0.4 ML SYRINGE SUBCUT (18:06)
[2021-01-08] MEDS: BENAZEPRIL 20 MG TABLET 40 MG PO (20:52)
[2021-01-08] MEDS: LOVASTATIN 20 MG TABLET 10 MG PO (20:52)
[2021-01-08] MEDS: GABAPENTIN 600 MG TABLET PO (20:54)
[2021-01-09] VITALS: BP 117/40; PULSE 78; RESP 15; TEMP 37.6; O2SAT 97
[2021-01-09] MEDS: LACTATED RINGERS 1,000 ML 100 ML IV (00:42)
[2021-01-09 03:37] VITALS: BP 128/78; PULSE 81; RESP 17; TEMP 37.2; O2SAT 93
[2021-01-09 08:16] VITALS: BP 127/61; PULSE 82; RESP 18; TEMP 36.7; O2SAT 82
--- NOTE | 2021-01-09 08:16 | P.PN_ITS ---
Subjective Subjective Date Patient Seen: 01/09/21 Time Patient Seen: 08:16 Interval history: 70 yo DM female seen s/p 2 days right transmetatarsal amputation performed Sunday morning, 01/07/2021. She was converted to an inpatient yesterday afternoon after continuing to feel nauseated. She currently reports resolution of this and feel like a new person. Denies f/c, and no lingering diarrhea. She ate dinner yesterday with no problem. She also saw physical therapy for training with a walker yesterday and decided to use a walker and wheelchair at home instead. Her daughter was present during the therapy training and able to learn techniques to help her mom as well, including use of the stabilizing belt. After her therapy visit, once her nausea reduced, Екатерина continued to practice the techniques with the walker and was able to get to the commode without problems. She experienced no pain overnight in the surgical foot, more like some pressure. She has incentive spirometry to use bedside. Exam Vital Signs (past 8 hours): - 01/09/21 03:37 Temperature 99.0 F Pulse Rate 81 Respiratory Rate 17 Blood Pressure 128/78 Pulse Oximetry 93 Oxygen Delivery Method Room Air Oxygen Flow Rate 0 Const General: comfortable Orientation: alert, awake and oriented x3 Resp Effort & Inspection: normal respiratory effort Cardio Pulses: popliteal pulses present Extrem Other: Right foot/ankle in splint and appears to show good alignment/padding. No strikethrough. Objective Labs Result Diagrams: 01/07/21 09:50 01/07/21 09:50 Labs: 01/07/21 Surgical culture right 4th metatarsal shaft Procedure Result Verified Site Gram Stain Final 01/08/21934 No Organism Seen No organisms seen White blood cells No WBC seen Aerobic Culture for wounds Preliminary 01/08/21934 No growth. Anaerobic Culture Pending 01/07/21 Surgical culture Comment right foot 4th interspace Procedure Result Verified Site Gram Stain Final 01/08/21- 934 No cells/ Organisms seen No cells or organisms seen White blood cells No WBC seen Aerobic Culture for wounds Preliminary 01/08/21934 No growth. Anaerobic Culture Pending 01/07/21 Surgical Pathology right fourth toe: pending. [facility] Medical History Amputated toe of right foot Cataract (lens) fragments in eye following cataract surgery, bilateral Diabetes mellitus Neuropathy Surgical History H/O: hysterectomy History of section History of surgery on right wrist Social History household members: children and none Smoking Status: Never smoker alcohol intake: never Assessment & Plan Post-op Assessment and plan (1) Migraine: Assessment and Plan narrative: Discussed with nurse what type of medication she normally takes for this at home, Excedrin migraine, and then discussed options with pharmacist to provide yesterday and offered tylenol, aspirin, or other NSAID. This has resolved as of last night and is ok to resume her as-needed medications she uses at home for these events as an outpatient. Postoperative Procedures: Procedures Operation Date: 01/07/21 09:45 Actual Procedures Side Surgeon p Transmetatarsal amputation Right Pamela Quiros DPM Postoperative day: 2 Postoperative status: doing well Postoperative status narrative: Significant improvement overnight s/p 2 days right transmetatarsal amputation regarding advancement from nausea/vomiting, and feels more steady on her feet with use of physical therapy teaching/training. Postoperative plan: discharge Postoperative plan narrative: Ok for formal admission to the floor for postoperative nausea and gait training yesterday. Today, we reviewed in detail her updated plan for discharge and beyond, and she feels a desire to discharge to home today in care of her daughter. -Checked her splint and dressing, well-padded and all in place. Instructions given for care of this area to not get it wet, and ok to reinforce tip of dressing with gauze if necessary. -Will consider new posterior splint at first outpatient post op visit vs boot based on her preferred assistive device for ambulation. -Appreciate consultation by physical therapy yesterday with her WB status of right foot flat touchdown only for steadiness, balance, and transfers as she is planning on continuing with the walker. She is also planning on a wheelchair for additional use as an alternative rather than a roll-about scooter which would allow her mostly NWB which is preferred initially while splint is in place and before she is ready for use of orthopedic boot. -Encouraged ROM and other DVT prevention techniques to the leg to continue upon D/C to home. Ok to start daily aspirin and will discuss this further at her appt on Sunday. -Reviewed also to continue use of incentive spirometry at home. -Final cultures from surgery are still pending, but initially show not bacterial growth. While we are pending final cultures from the surgery, she is going to resume her oral dose of doxycycline she has at home as per instructions from Dr. Neely. -Healthy eating and drinking habits reviewed for when she returns home. -Her daughter will be able to care for her upon d/c to home. Spoke with Case Mgmt and reviewed details of likely d/c to home today. We reviewed the initial potential for at-home home health consultation for wound care and ADLs/phys therapy, but at the moment there is not a need for dressing change and won't be placed unless the coming days/weeks show this as a need. She also reviewed with myself and Case Mgmt today that she is comfortable with the training she and her daughter received from therapy for how they will do at home. -I am comfortable with d/c to home today following final check by physical therapy as well as verifying nausea/pain controlled, and they appear to be at the time of this writing. She had no further questions and already has her medications filled that she will need for her mgmt at home. Time Spent With Patient Time with patient: 15-24 minutes Quality MIPS - Admit Advanced Care Plan / Current Medications Measures: #47 ? Advanced Care Plan Clinician documentation instruction: document at admission. [] I confirmed that the patient's Advance Care Plan is present, code status is documented, or surrogate decision maker is listed in the patient?s medical record. [SATISFIES MIPS PERFORMANCE] If Yes, Stop Here [] The patient?s Advance Care plan is not present because: (select) [MIPS PERFORMANCE EXCEPTION/EXCLUSION] [] I confirmed today that the patient does not wish or was not able to name a surrogate decision maker or provide an Advance Care Plan. [] Hospice care is currently being provided or has been provided this calendar year [] I did NOT confirm today the presence of an Advance Care Plan or surrogate decision maker documented within the patient's medical record. [DOES NOT SATISFY MIPS PERFORMANCE] #130 - Documentation of Current Medications in the Medical Record Clinician documentation instruction: use macro the first time you see a patient. [X] I have utilized all available immediate resources to obtain, update, or review the patient?s current medications. [SATISFIES MIPS PERFORMANCE] If Yes, Stop Here [] The patient is not eligible for medication reconciliation; the patient is in an emergent medical situation where delaying treatment would jeopardize the patient?s health. [MIPS PERFORMANCE EXCEPTION/EXCLUSION] [] I did NOT confirm, update or review the patient's current list of medications today. [DOES NOT SATISFY MIPS PERFORMANCE] MIPS - CL Central Venous Catheter Placement Measure: #76 ? Prevention of Central Venous Catheter (CVC) ? Related Bloodstream Infection Clinician documentation instruction: use macro every time you place a central line. [x] All elements of Maximal Sterile Barrier Technique, including hand hygiene, skin prep, and sterile ultrasound technique (if used) were followed. [SATISFIES MIPS PERFORMANCE] If Yes, Stop Here [] If ?No?, the medical reason all elements were NOT used for medical reason [] (ex. emergent condition). [] Maximal Sterile Barrier Technique was not followed, no reason provided [DOES NOT SATISFY MIPS PERFORMANCE] MIPS - DC Heart Failure Measures: #5 - Heart Failure (HF): Angiotensin-Converting Enzyme (LUCERO) Inhibitor or Angiotensin Receptor Samanta (ARB) Therapy for Left V entricular Systolic Dysfunction (LVSD) and #8 - Heart Failure (HF): Beta-Samanta Therapy for Left Ventricular Systolic Dysfunction (LVSD) Clinician documentation instruction: use macro at every CHF discharge. [] The patient has current or prior documentation of left ventricular ejection fraction (LVEF) less than 40%, or moderate or severely depressed left ventricular systolic function. Answer both: [SATISFIES MIPS PERFORMANCE] [x] The patient was prescribed or already taking an Angiotensin-Converting Enzyme (LUCERO) Inhibitor, or Angiotensin Receptor Samanta (ARB). [] The patient was prescribed or already taking a beta-samanta. If Yes to Both, Stop Here [] Patient not prescribed/taking: [MIPS PERFORMANCE EXCEPTION/EXCLUSION] [] LUCERO or ARB for medical/patient/system reason(s) including [] (ex. allergy, intolerance, contraindication) [] Beta-samanta for medical/patient/system reason(s) including [] (ex. allergy, intolerance, contraindication) [] Patient not prescribed/taking: [DOES NOT SATISFY MIPS PERFORMANCE] [] LUCERO or ARB, no reason given [] Beta-samanta, no reason given
--- NOTE | 2021-01-09 08:21 | CM.DPC ---
DCP Discharge Home Per Surgeon, pt is medically stable today to be able to d/c home with currently no need for assistant terminal manager IV-Abx as cultures are normal. Dr. Quiros plans to see pt in her office in 48 hours for close follow up. SW met bedside with pt and Surgeon and discussed pt's progress with PT yesterday with Dtr present for CG training and stair training. Surgeon and pt do not feel HH needed at this time due to pt's progress and Dtr's comfort with providing assist and preference would be outpt treatment and follow up. SW discussed how to establish HH if needed once home and pt appreciative. Pt states that she feels she and her Dtr are comfortable and capable with d/c home today as they had a trial run a while ago when my toe was amputated. Dtr plans to be bedside this morning sometime to do final CG training with PT and transport pt home and is working to secure a w/c for longer distances until pt farther along in the healing process. Plan: Patient to d/c home today via Dtr POV and close outpt follow up and no further SW needs at this time. KARLENE Stearns
[2021-01-09] MEDS: hydroCHLOROthiazide 25 MG TABLET 50 MG PO (08:34)
[2021-01-09] MEDS: LACTOBACILLUS ACIDOPHILUS TABLET 1 EACH PO (08:34)
[2021-01-09] MEDS: METFORMIN HCL 500 MG TABLET 1000 MG PO (08:34)
--- NOTE | 2021-01-09 08:45 | P.DS_ITS ---
History of Present Illness History of Present Illness Date Patient Seen: 01/09/21 Time Patient Seen: 08:45 Date of Onset of Symptoms: 01/07/21 Chief complaint: OPB Discharge Providers Provider Discharge Date: 01/09/21 Primary care physician: Zoran Welch DO Consults: 01/07/21 12:56 Consult to Discharge Planning Routine Comment: Expect 23 hour admission at time of this order Consult to Physical Therapy Evaluate & Treat Comment: Will be NWB x4 wks,touchdown flat w/walker PWB prn Physician Instructions: Evaluate and Treat Consult to Respiratory Therapy Evaluate & Treat Comment: Physician Instructions: Evaluate and treat Discharge provider: Pamela Quiros DPM Summary Hospital Course Discharge Diagnosis: s/p right transmetatarsal amputation Post-operative nausea Diabetes mellitus with peripheral neuropathy Migraine Hospital Course: 70 yo diabetic female admitted to the surgical floor s/p right transmetatarsal amputation on 01/07/2021. She was supported for management of nausea/vomiting with iv fluids and medication management. She also experienced a migraine headache during the initial evening and morning after admission, which was resolved with time and medication for support consistent with what she normally uses at home for it (Excedrin migraine) was attempted to be matched as closely as possible if she desired it's usage. The drain placed in her foot following the procedure was also changed with new vacutainers over the course the first 18 hours following the procedure before it discontinued measurable drainage and was safely and fully removed on 01/08/21 in the AM. She was given instructions and teaching/training for weightbearing status by physical therapy and throughout the course of the first day she still had not resolved her nausea. This improved significantly toward the later part of the first day and at the morning of the second day she no longer felt nauseated and was able to eat/void and clear of pain. She and her daughter felt comfortable with the tr layne received from phys therapy and patient to be discharged later the second day of admission to home in c/o her daughter. Status at Discharge Cognitive/behavioral status at discharge: oriented and calm Functional status at discharge: uses cane/walker Overall status at discharge: patient is back to baseline Time Spent with Patient Time spent: Less than 30 minutes Exam Vital Signs (past 8 hours): - 01/09/21 03:37 01/09/21 08:16 Temperature 99.0 F 98.1 F Pulse Rate 81 82 Respiratory Rate 17 18 Blood Pressure 128/78 127/61 Pulse Oximetry 93 82 L Oxygen Delivery Method Room Air Oxygen Flow Rate 0 Const Orientation: alert, awake and oriented x3 Resp Effort & Inspection: normal respiratory effort Cardio Pulses: popliteal pulses present Extrem Other: Right foot/ankle in splint and appears to show good alignment/padding. No strikethrough. Objective Labs Result Diagrams: 01/07/21 09:50 01/07/21 09:50 Labs: 01/07/21 Surgical culture right 4th metatarsal shaft Procedure Result Verified Site Gram Stain Final 01/08/21934 No Organism Seen No organisms seen White blood cells No WBC seen Aerobic Culture for wounds Preliminary 01/08/21934 No growth. Anaerobic Culture Pending 01/07/21 Surgical culture Comment right foot 4th interspace Procedure Result Verified Site Gram Stain Final 01/08/21- 934 No cells/ Organisms seen No cells or organisms seen White blood cells No WBC seen Aerobic Culture for wounds Preliminary 01/08/21934 No growth. Anaerobic Culture Pending 01/07/21 Surgical Pathology right fourth toe: pending. [facility] Medical History Amputated toe of right foot Cataract (lens) fragments in eye following cataract surgery, bilateral Diabetes mellitus Neuropathy Surgical History H/O: hysterectomy History of section History of surgery on right wrist Social History household members: children and none Smoking Status: Never smoker alcohol intake: never Discharge Assessment & Plan Assessment and Plan Assessment: s/p Right transmetatarsal amputation Post-operative nausea Migraine Diabetes mellitus with peripheral neuropathy. Plan of Treatment: Today, we reviewed in detail her updated plan for discharge and beyond, and she feels a desire to discharge to home today in care of her daughter. -Checked her splint and dressing, well-padded and all in place. Instructions given for care of this area to not get it wet, and ok to reinforce tip of dressing with gauze if necessary. -Will consider new posterior splint at first outpatient post op visit vs boot based on her preferred assistive device for ambulation. -Appreciate consultation by physical therapy yesterday with her WB status of right foot flat touchdown only for steadiness, balance, and transfers as she is planning on continuing with the walker. She is also planning on a wheelchair for additional use as an alternative rather than a roll-about scooter which would allow her mostly NWB which is preferred initially while splint is in place and before she is ready for use of orthopedic boot. -Encouraged ROM and other DVT prevention techniques to the leg to continue upon D/C to home. Ok to start daily aspirin and will discuss this further at her appt on Sunday. -Reviewed also to continue use of incentive spirometry at home. -Final cultures from surgery are still pending, but initially show not bacterial growth. While we are pending final cultures from the surgery, she is going to resume her oral dose of doxycycline she has at home as per instructions from Dr. Neely. -Healthy eating and drinking habits reviewed for when she returns home. -Her daughter will be able to care for her upon d/c to home. Spoke with Case Mgmt and reviewed details of likely d/c to home today. We reviewed the initial potential for at-home home health consultation for wound care and ADLs/phys therapy, but at the moment there is not a need for dressing change and won't be placed unless the coming days/weeks show this as a need. She also reviewed with myself and Case Mgmt today that she is comfortable with the training she and her daughter received from therapy for how they will do at home. -I am comfortable with d/c to home today following final check by physical therapy as well as verifying nausea/pain controlled, and they appear to be at the time of this writing. -Continue outpatient management of her diabetes and periodic migraines with her primary care physician. She had no further questions and already has her medications filled that she will need for her mgmt at home. Discharge Plan Discharge Plan Patient Disposition: Home Provider Discharge Comment: Please see your postoperative instructions as given for your right foot at your preoperative clinic visit with Dr. Quiros. Discharge orders & Medications Discharge Orders: Discharge (Order); Ordered 01/09/21 Ordered By: Pamela Quiros Prescriptions: Continued gabapentin 600 mg tablet 600 mg PO DAILY RF: 0 hydrochlorothiazide 50 mg tablet 50 mg PO DAILY RF: 0 lovastatin 10 mg tablet 10 mg PO DAILY RF: 0 metformin 1,000 mg tablet 1,000 mg PO BID RF: 0 benazepril 40 mg tablet 40 mg PO DAILY RF: 0 Culturelle Ultimate 20 billion cell -200 mg Capsule 1 cap PO DAILY RF: 0 doxycycline monohydrate 100 mg Capsule 100 mg PO BID RF: 0 Follow up/Referrals: Zoran Welch DO [Primary Care Provider] - Diet/Activity/Treatments Activity: Right foot flat touchdown only for steadiness, balance, and transfers if using walker. Once securing a wheelchair, prefer mostly nonweightbearing to the right foot which is preferred initially while splint is in place and before we get you ready for use of orthopedic boot. Cold/Heat Therapy: No ice to leg or foot. Skin/Wound/Dressing Care Dressing: Ok to reinforce the dressing at the tip of the splint if see minor bleeding using gauze. Otherwise, no dressing change needed and we will change it on Sunday's appt. Do not get the dressing or splint wet. Visit Report/Discharge Packet Instructions: DI for Prescription Opioid Use Discharge Data Primary Care Provider: Zoran Welch Attending Provider: Pamela Quiros MIPS - Admit Advanced Care Plan / Current Medications Measures: #47 ? Advanced Care Plan Clinician documentation instruction: document at admission. [] I confirmed that the patient's Advance Care Plan is present, code status is documented, or surrogate decision maker is listed in the patient?s medical record. [SATISFIES MIPS PERFORMANCE] If Yes, Stop Here [] The patient?s Advance Care plan is not present because: (select) [MIPS PERFORMANCE EXCEPTION/EXCLUSION] [] I confirmed today that the patient does not wish or was not able to name a surrogate decision maker or provide an Advance Care Plan. [] Hospice care is currently being provided or has been provided this calendar year [x] I did NOT confirm today the presence of an Advance Care Plan or surrogate decision maker documented within the patient's medical record. [DOES NOT SATISFY MIPS PERFORMANCE] #130 - Documentation of Current Medications in the Medical Record Clinician documentation instruction: use macro the first time you see a patient. [x] I have utilized all available immediate resources to obtain, update, or review the patient?s current medications. [SATISFIES MIPS PERFORMANCE] If Yes, Stop Here [] The patient is not eligible for medication reconciliation; the patient is in an emergent medical situation where delaying treatment would jeopardize the patient?s health. [MIPS PERFORMANCE EXCEPTION/EXCLUSION] [] I did NOT confirm, update or review the patient's current list of medications today. [DOES NOT SATISFY MIPS PERFORMANCE] MIPS - CL Central Venous Catheter Placement Measure: #76 ? Prevention of Central Venous Catheter (CVC) ? Related Bloodstream Infection Clinician documentation instruction: use macro every time you place a central line. [x] All elements of Maximal Sterile Barrier Technique, including hand hygiene, skin prep, and sterile ultrasound technique (if used) were followed. [SATISFIES MIPS PERFORMANCE] If Yes, Stop Here [] If ?No?, the medical reason all elements were NOT used for medical reason [] (ex. emergent condition). [] Maximal Sterile Barrier Technique was not followed, no reason provided [DOES NOT SATISFY MIPS PERFORMANCE] MIPS - DC Heart Failure Measures: #5 - Heart Failure (HF): Angiotensin-Converting Enzyme (LUCERO) Inhibitor or Angiotensin Receptor Samanta (ARB) Therapy for Left Ventricular Systolic Dysfunction (LVSD) and #8 - Heart Failure (HF): Beta-Samanta Therapy for Left Ventricular Systolic Dysfunction (LVSD) Clinician documentation instruction: use macro at every CHF discharge. [] The patient has current or prior documentation of left ventricular ejection fraction (LVEF) less than 40%, or moderate or severely depressed left ventricular systolic function. Answer both: [SATISFIES MIPS PERFORMANCE] [x] The patient was prescribed or already taking an Angiotensin-Converting Enzyme (LUCERO) Inhibitor, or Angiotensin Receptor Samanta (ARB). [] The patient was prescribed or already taking a beta-samanta. If Yes to Both, Stop Here [x] Patient not prescribed/taking: beta-samanta [] LUCERO or ARB for medical/patient/system reason(s) including [] (ex. allergy, intolerance, contraindication) [] Beta-samanta for medical/patient/system reason(s) including [] (ex. allergy, intolerance, contraindication) [] Patient not prescribed/taking: [DOES NOT SATISFY MIPS PERFORMANCE] [] LUCERO or ARB, no reason given [] Beta-samanta, no reason given
[2021-01-09 11:18] VITALS: BP 110/63; PULSE 78; RESP 22; TEMP 37.1; O2SAT 94
[2021-01-09] MEDS: INSULIN ASPART 100 UNIT/ML INSULN PEN SUBCUT (12:06)
--- NOTE | 2021-01-09 13:01 | PT.IPTN ---
Current Diagnoses Type 2 diabetes mellitus with other diabetic neurological complication (01/08/21) Type 2 diabetes mellitus without complications (01/08/21) Migraine, unspecified, not intractable, without status migrainosus (01/08/21) Non-pressure chronic ulcer of other part of right foot with fat layer exposed (01/08/21) Other hammer toe(s) (acquired), right foot (01/08/21) Surgery Performed Operation Date: 01/07/21 09:45 Actual Procedures p Transmetatarsal amputation(Right) - Pamela Quiros DPM Physical Therapy Treatment Note M2 PT-IP Current Condition Start: 01/08/21 12:01 Freq: NEEDED Status: Discharge Protocol: Document 01/08/21 10:51 AB (Rec: 01/08/21 12:17 AB [id number]) Physical Therapy Current Condition Current Condition Evaluation Date 01/08/21 Treatment Diagnosis s/p R transmetatarsal amputation; difficulty in walking Onset Date 01/07/21 Precautions Brace R LE posterior splint Weight Bearing Status Weight Bearing Status Non-Weight Bearing Allowed Weight Bearing Amount (enter % RLE NWB x 4 weeks but with or #) (%) walker use can do TDWB with foot flat and not heel only M3 PT-IP Subjective Start: 01/08/21 12:01 Freq: NEEDED Status: Discharge Protocol: Document 01/09/21 13:01 AW (Rec: 01/09/21 14:36 AW [id number]) Subjective Physical Therapy Visit Type Type Treatment Note Visit Start Time 12:45 Visit Stop Time 13:01 Total Visit Minutes 16 Number of MEDIA RELATIONS COORDINATOR Visits 0 Physical Therapy Visit Comments Patient Comments pt is agreeable to do PT; daughter in room for caregiver training; M4 PT-IP Mobility and Gait Start: 01/08/21 12:01 Freq: NEEDED Status: Discharge Protocol: Document 01/09/21 13:01 AW (Rec: 01/09/21 14:36 AW [id number]) PT-Bed Mobility Assessment Sit to Supine Sit to Supine Standby Assistance PT-Transfer Assessment Sit to and From Stand Sit to and from Stand Contact Guard Assistance, Minimal Assistance,1 Person Assistance,Use of Upper Extremities Equipment Transfer Assistive Device Gait Belt,Front Wheeled Walker Orthotic/Prosthetic Devices or Brace: No Transfers Transfer Destination Bed Transfer Technique ambulated using FWW Transfer Ability Level of Assist Contact Guard Assistance, Minimal Assistance,1 Person Assistance,Use of Upper Extremities Comments Mobility Comments Continued CGT. Pt's daughter applied the gait belt appropriately and assisted pt to stand from the chair min A x 1. Pt ambulated 6 feet to the platform step in the room. With min A x 1 and cues provided by her daughter, pt ascended the platform backwards on second attempt. First attempt, pt needed cues for increased UE recruitment to elevate her leg. Pt c/o fatigue but was able to safely descend the step going forward. She ambulated back to the bed and transferred to supine SBA. Gait Assessment Gait Gait Assistance Required: Contact Guard Assist,Minimum Assistance Distance (Feet) 6 Able to Maintain Weight Bearing Status Yes During Gait Assistive Devices Assistive Device Gait Belt,Front Wheeled Walker Orthotic/Prosthetic Devices or Brace: Yes Gait Deviations General Gait Pattern Decreased Stride Length, Decreased Feet Clearance Factors Limiting Gait Function Factors Limiting Gait Function Decreased Activity Tolerance, Decreased Sensation,Decreased Strength,Pain,Poor Balance, Poor Safety Awareness Comments Gait Comments Able to take steps during transfers while maintaining NWB RLE. Stair Climbing Assessment Evaluation Level of Assist On Stairs Minimal Assistance,Moderate Assistance,1 Person Assistance Devices Stair Climbing Assistive Devices Front Wheel Walker Technique/Endurance Stair Climbing Direction Ascend and Descend Stair Climbing Technique Step to Step Number of Steps Climbed 1 Stair Climbing Set # Repetitions (reps) 1 Comments Stair Climbing Comments See mobility comments. Pt states platform step is taller than hers at home. M5 PT-IP Objective Assessments Start: 01/08/21 12:01 Freq: NEEDED Status: Discharge Protocol: Document 01/08/21 10:51 AB (Rec: 01/08/21 12:17 AB [id number]) Orientation Orientation/Cognition Level of Alertness Alert Orientation Name,Place,Situation Language Function Ability Hard of Hearing Safety Awareness Decreased Safety Awareness Gross Range of Motion Lower Extremity ROM Assessment Within Functional Limits Impairments R ankle NT: with posterior splint Strength Lower Extremity Strength Ankle NT: with posterior splint and weight bearing restriction Sensation Assessment Sensation Light Touch Impaired Proprioception (Position) Impaired Comments Sensation Comments has chronic bilateral LE neuropathy Muscle Tone Muscle Tone WNL Yes M6 PT-IP Treatment Start: 01/08/21 12:01 Freq: NEEDED Status: Discharge Protocol: Document 01/09/21 13:01 AW (Rec: 01/09/21 14:36 AW [id number]) Physical Therapy Treatment Education Education Provided Weight Bearing Status,Safety M7 PT-IP Assessment and Plan Start: 01/08/21 12:01 Freq: NEEDED Status: Discharge Protocol: Document 01/09/21 13:01 AW (Rec: 01/09/21 14:36 AW [id number]) PT Summary Assessment and Plan Potential Rehabilitation Potential Good Status of Condition at Evaluation Evolving Summary Impairments Pain,ROM,Strength,Balance, Coordination,Sensation,Tone, Cognition,Bed Mobility, Transfers,Gait,Activity Tolerance Progress Towards Goals Slow Progress due to Activity Tolerance,Slow Progress - Other Assessment Summary Continued caregiver training. Daughter states she has acquired a w/c for home use. Advised pt and daughter to consider a BSC for nighttime use. Daughter is able to provide safe level of assist. Pt is encouraged to avail herself of services, especially PT, OT, and bath aide. Pt declined but stated she would reach out to [facility] if she decided differently. Goals Bed Mobility Goal Independent Transfer Goal Independent,Front Wheeled Walker Gait Goal Independent,Front Wheel Walker Gait Distance 50 Other Goals up/down 2 platform steps using FWW min A Days to Meet Goals 5 Frequency of Treatment Frequency Of Treatment Twice a Day Treatment Plan Physical Therapy Treatment Plan Bed Mobility Training,Transfer Training,Gait Training, Therapeutic Exercise,Balance Retraining,Post Op Education, Discharge Planning,Hot or Cold Pack,Neuromuscular Re-ed, Coordination Retraining,Manual Therapy Precautions Other Precautions NWB on RLE; with walker use: TDWB foot flat and not on heel only Recommendations To Nursing Amount of Assist Needed 1 Person Assist Discharge Recommendations PT Discharge Recommendations Home with 14/05 Assist Available,Home Health Transportation Needs at Discharge Private Vehicle,Wheelchair/ Cabulance
[2021-01-09] MEDS: HYDROCODONE/ACET 5/325 TABLET 1 TAB PO (13:27)
--- NOTE | 2021-01-09 13:48 | PC.NURSE ---
Dayshift note: Patient discharged per MD order, discharge instructions given to both patient and granddaughter. Discussed importance of F/U with Dr. Quiros on 01/11, antibiotic adherence, s/sx of infections, dressing care, mobility restrictions to RLE. Both verbalized understanding of discharge instructions. Home via private vehicle accompanied by granddaughter Trudy.
== END 2021-01-09 13:50 | disposition home or self-care (01) ==
LOC: OR 01-09 10:12 → AC 01-09 10:12
PROVIDERS: Admitting Provider Podiatrist; Family Provider Family Medicine; PCP Family Medicine; Referring Provider Podiatrist; Visit Provider Podiatrist
PROC: (CPT 28810; principal; 2021-01-07 09:45)
DX: M86.171 Other acute osteomyelitis, right ankle and foot (principal); L97.512 Non-pressure chronic ulcer of other part of right foot with fat layer exposed; E11.49 Type 2 diabetes mellitus with other diabetic neurological complication; M20.41 Other hammer toe(s) (acquired), right foot; R11.0 Nausea; G43.909 Migraine, unspecified, not intractable, without status migrainosus
CPT/HCPCS: 28810; 36415; 80048; 82962; 87070; 87075; 87176; 87205; 87493; 97162; 97530; G0378; J0690; J1650; J2250; J2405